=== PATIENT | female | born 1955 | race Caucasian/White ===

== ENCOUNTER 2023-11-13 09:37 | Outpatient (OUT) | payer MEDICARE, SELFPAY ==
--- NOTE | 2023-11-13 09:46 | XR_ITS ---
[address] [address] Patient Name: TINY HERNANDEZ MRN: [id number] date: 1955 Sex: F Assigned Patient Location: [facility] Current Patient Location: RAD Accession/Order Number: [id number] Exam Date: 11/13/2023 09:55 Report Date: 11/13/2023 10:14 At the request of: COSME SANTIAGO Procedure: XR knee LT 3V PROCEDURE: XR knee LT 3V COMPARISON: None. HISTORY: Left Knee Pain And Swelling M25.562 FINDINGS: BONES:No acute fracture or dislocation. Mild marginal osteophyte formation. Extensive chondrocalcinosis SOFT TISSUES:Negative. No visible soft tissue swelling. EFFUSION:Moderate to large suprapatellar joint effusion OTHER: Negative. XR/XR knee LT 3V IMPRESSION: Moderate joint effusion Chondrocalcinosis Electronically authenticated by: ENRIKE CHOI Date: 11/13/2023 10:14
== END 2023-11-13 09:38 | disposition home or self-care (01) ==
LOC: RAD 09:41
PROVIDERS: PCP Family Medicine; Visit Provider Nurse Practitioner Family
DX: M25.562 Pain in left knee (principal); M25.462 Effusion, left knee
CPT/HCPCS: 73562